=== PATIENT | male | born 1970 ===

== ENCOUNTER 2017-03-23 08:01 | Emergency (ER) | payer SELFPAY ==
[2017-03-23 08:05] VITALS: BMI 30.1
[2017-03-23] MEDS ORDERED: Sodium Chloride 0.9% 1,000 ML IV ONE (08:20)
[2017-03-23] MEDS ORDERED: Albuterol-Ipratrop 3 mg / 0.5 (3 ml) UD IH STA (08:22)
[2017-03-23] MEDS ORDERED: Albuterol-Ipratrop 3 mg / 0.5 (3 ml) UD ONE (08:40)
[2017-03-23] MEDS ORDERED: Sodium Chloride 0.9% 1,000 ML ONE (08:41)
[2017-03-23] MEDS ORDERED: MethylPREDNISolone 40 mg Vial ONE (08:44)
[2017-03-23 08:47] LABS: BASO # 0.1 K/uL (0.0-0.2); BASO % 0.7 % (0.0-2.0); EOS # 0.4 K/uL (0.0-0.7); EOS % 4.2 % (0.0-4.0); HEMATOCRIT 43.1 % (35.0-51.0); LYMPH # 1.8 K/uL (1.0-4.3); LYMPH % 20.2 % (20.0-40.0); MEAN CELL VOLUME 91.7 fL (80.0-94.0); MEAN CORPUSCULAR HEMOGLOBIN 31.5 pg (27.0-31.0); MEAN CORPUSCULAR HGB CONC 34.4 g/dL (33.0-37.0); MEAN PLATELET VOLUME 8.6 fL (7.2-11.7); MONO # 0.9 K/uL (0.0-0.8); RED CELL DISTRIBUTION WIDTH 13.5 % (11.5-14.5); WHITE BLOOD COUNT 9.1 K/uL (4.8-10.8)
[2017-03-23 08:55] LABS: BLOOD UREA NITROGEN 13 mg/dL (9-20); CALCIUM 8.7 mg/dl (8.6-10.4); CARBON DIOXIDE 28 mmol/L (22-30); CHLORIDE 103 mmol/L (98-107); GFR AFRICAN-AMERICAN > 60; GLUCOSE,RANDOM 93 mg/dL (75-110); POTASSIUM 4.3 mmol/L (3.6-5.2); SODIUM 137 mmol/L (132-148)
--- NOTE | 2017-03-23 09:04 | C.PDOC ---
History Of Present Illness 46 yo male w/PMHx of asthma come inf or evaluation of chest tightness gradually developed for past week. Pt admits, " travel a lot now, from different climates zone, weather changes might trigger it". Pt also complaining of lower back tightness. Otherwise, pt denies fever, chills, headache, dizziness, neck pain, CP, SOB, cough, palpitation, abd. pain, N/V/D, UTI sx, saddle anesthesia, incontinence, denies weakness, sensory or vascular deficits to B/L LEs. Ambulate to ED for evaluation, not in any apparent distress. Time Seen by Provider: 03/23/17 08:08 Chief Complaint (Nursing): Shortness Of Breath History Per: Patient Past Medical History Reviewed: Historical Data, Nursing Documentation, Vital Signs Vital Signs: Last Vital Signs Temp 98.2 F 03/23/17 10:08 Pulse 77 03/23/17 10:08 Resp 20 03/23/17 10:08 BP 126/72 03/23/17 10:08 Pulse Ox 99 03/23/17 10:19 - Medical History PMH: Asthma Surgical History: No Surg Hx Family History: States: No Known Family Hx - Social History Hx Tobacco Use: No Hx Alcohol Use: No Hx Substance Use: Yes (Marijuana) - Immunization History Hx Tetanus Toxoid Vaccination: No Hx Influenza Vaccination: No Review Of Systems Except As Marked, All Systems Reviewed And Found Negative. Constitutional: Negative for: Fever, Chills Eyes: Negative for: Vision Change ENT: Negative for: Ear Discharge, Nose Discharge, Nose Congestion, Throat Pain, Throat Swelling Cardiovascular: Negative for: Chest Pain, Palpitations, Paroxysmal Noc. Dyspnea , Edema, Light Headedness Respiratory: Negative for: Cough, Shortness of Breath, Pleuritic Pain, Sputum, Wheezing Gastrointestinal: Negative for: Nausea, Vomiting, Abdominal Pain Genitourinary: Negative for: Dysuria, Incontinence Musculoskeletal: Positive for: Back Pain. Negative for: Neck Pain Skin: Negative for: Rash Neurological: Negative for: Weakness, Numbness, Altered Mental Status, Dizziness Physical Exam - Physical Exam Appears: Well, Non-toxic, No Acute Distress Skin: Normal Color, Warm, Dry, No Rash Head: Normacephalic Eye(s): bilateral: PERRL Ear(s): Bilateral: Normal Nose: No Flaring, No Discharge Oral Mucosa: Moist, No Drooling Tongue: Normal Appearing Lips: Normal Appearing Throat: No Erythema, No Exudate Neck: Trachea Midline, Supple Cardiovascular: Rhythm Regular, No Murmur, No JVD Respiratory: No Decreased Breath Sounds, No Wheezing Gastrointestinal/Abdominal: Soft, No Tenderness, No Distention, No Guarding Back: No CVA Tenderness, No Vertebral Tenderness, Paraspinal Tenderness (lumbar) Extremity: Normal ROM, No Pedal Edema, No Deformity, No Swelling Neurological/Psych: Oriented x3, Normal Speech, Normal Motor, Normal Sensation, Normal Reflexes ED Course And Treatment - Laboratory Results Result Diagrams: 03/23/17 08:38 03/23/17 08:38 Lab Interpretation: Normal Interpretation Of ECG: Pt refused EKG O2 Sat by Pulse Oximetry: 99 Pulse Ox Interpretation: Normal - Other Rad CXR X-Ray: Read By Radiologist Interpretation: Creator : Hill Russell MD. Dictator : Hill Russell MD. Toll Gate Tender : Tin Whiz Machine Operator : Hill Russell MD. Approver2 : Report Date : 03/23/2017 09:03:37. My Comment : . HISTORY: Shortness of breath. COMPARISON: No prior. TECHNIQUE: Chest PA and lateral. FINDINGS: LUNGS: No active pulmonary disease. PLEURA: No significant pleural effusion identified. No pneumothorax apparent. CARDIOVASCULAR: Normal. OSSEOUS STRUCTURES: No significant abnormalities. VISUALIZED UPPER ABDOMEN: Normal. OTHER FINDINGS: None. IMPRESSION: No active disease. Progress Note: On re-evaluation, pt is afebrile, hemodynamicaly stable. Non- toxic. PUlsEOx 99% RA. PEAK flow- 420 post Tx. ENT: No acute findings. Neck : Supple, (-) JVD, (-) carotid bruits,. Lungs: CTA B/L, BS equal B/L. Abd: benign, (-) guarding, (-) rebound. Back: (-) CVA tenderness. Neuorlogicaly intact. Blood work review and appears normal. CXR- no acute abnormalities. Pt has clinical findings c/w asthma exacerbation, lower back strain. Pt advised. ref. to F/u with PMD in 2-3 days for re-eval. Return to ED if any worsening or new changes. Pt understand, stable for discharge now. Disposition Counseled Patient/Family Regarding: Studies Performed, Diagnosis, Need For Followup, Rx Given - Disposition Referrals: [facility] [Outside] Disposition: HOME/ ROUTINE Disposition Time: 10:07 Condition: STABLE Additional Instructions: Light duty to lower back Take medication as prescribed Inhaler twice daily for 3-4 days Follow up with PMD, Pulmonology in 2-3 days for re-evaluation. Return to ED if any worsening or new changes. Prescriptions: Ibuprofen [Motrin Tab] 600 mg PO Q6 #20 tab Methocarbamol [Robaxin] 500 mg PO TID #14 tab Prednisone [Deltasone] 40 mg PO DAILY #6 tablet Instructions: Asthma (ED), Back Pain (ED) Forms: [employer] (Azeri) - Clinical Impression Clinical Impression: Asthma, Lower back pain
--- NOTE | 2017-03-23 09:05 | RAD ---
HISTORY: Shortness of breath COMPARISON: No prior. TECHNIQUE: Chest PA and lateral FINDINGS: LUNGS: No active pulmonary disease. PLEURA: No significant pleural effusion identified. No pneumothorax apparent. CARDIOVASCULAR: Normal. OSSEOUS STRUCTURES: No significant abnormalities. VISUALIZED UPPER ABDOMEN: Normal. OTHER FINDINGS: None. IMPRESSION: No active disease.
[2017-03-23 09:10] LABS: RBC URINE 2 /hpf (0-3); URINE BILIRUBIN NEGATIVE (NEGATIVE); URINE BLOOD NEGATIVE (NEGATIVE); URINE COLOR Yellow (YELLOW); URINE GLUCOSE (UA) NORMAL (Normal); URINE KETONE NEGATIVE (NEGATIVE); URINE LEUKOCYTE ESTERASE NEG Leu/uL (Negative); URINE PROTEIN NEGATIVE (NEGATIVE); URINE UROBILINOGEN NORMAL mg/dL (0.2-1.0); WBC URINE 1 /hpf (0-5)
[2017-03-23 10:09] VITALS: BP 126/72; PULSE 77; RESP 20; TEMP 98.2
[2017-03-23 10:10] VITALS: O2SAT 99
== END 2017-03-23 10:28 | disposition home or self-care (01) ==
LOC: C.ER 08:01
DX: M54.5 Low back pain (principal); J45.909 Unspecified asthma, uncomplicated
CPT/HCPCS: 71020; 80048; 81001; 85025; 96361; 96374; 96375; 99285; J1885; J2405; J2930; J7040

== ENCOUNTER 2017-05-20 06:23 | Emergency (ER) | payer SELFPAY ==
[2017-05-20 06:24] VITALS: BMI 30.1
--- NOTE | 2017-05-20 07:23 | C.PDOC ---
History Of Present Illness Patient c/o right hand pain and swelling after he fell at work 10 pm last night. Patient denies any other injuries. Time Seen by Provider: 05/20/17 07:05 Chief Complaint (Nursing): Upper Extremity Problem/Injury History Per: Patient History/Exam Limitations: no limitations Onset/Duration Of Symptoms: Days (last night) Current Symptoms Are (Timing): Still Present Quality: "Pain" Pain Scale Rating Of: 7 Hands/Wrist (Pic): 1 - swelling, tenderness Past Medical History Reviewed: Historical Data, Nursing Documentation, Vital Signs Vital Signs: Last Vital Signs Temp 98 F 05/20/17 08:10 Pulse 82 05/20/17 08:10 Resp 16 05/20/17 08:10 BP 142/86 05/20/17 08:10 Pulse Ox 100 05/20/17 08:32 - Medical History PMH: Asthma Family History: States: Unknown Family Hx - Social History Hx Tobacco Use: No Hx Alcohol Use: Yes Hx Substance Use: Yes (Marijuana) - Immunization History Hx Tetanus Toxoid Vaccination: No Hx Influenza Vaccination: No Hx Pneumococcal Vaccination: No Review Of Systems Except As Marked, All Systems Reviewed And Found Negative. Musculoskeletal: Positive for: Hand Pain (right) Physical Exam - Physical Exam Appears: Well, Non-toxic, No Acute Distress Skin: Normal Color, No Rash Head: Atraumatic, Normacephalic Eye(s): bilateral: Normal Inspection Extremity: Tenderness (right hand, dosul over 3, 4, 5 metacarpal bones area), Swelling (dorsum of the right hand) Neurological/Psych: Oriented x3, Normal Speech, Normal Cognition ED Course And Treatment O2 Sat by Pulse Oximetry: 100 - Other Rad Right Hand xray X-Ray: Viewed By Me, Read By Radiologist Interpretation: Accession No. : [id number]. Patient Name / ID : RAY Sebastian / [id number]. Exam Date : 05/20/2017 07:23:44 ( Approved ). Study Comment : Sex / Age : M / 46Y. Creator : Yaniv Tapia MD. Dictator : Yaniv Tapia MD. Box Car Loader : Cosmetic Chemist : Yaniv Tapia MD. Approver2 : Report Date : 05/20/2017 08:36:27. My Comment : . PROCEDURE: Right Hand Radiographs. HISTORY: fall. COMPARISON: None. FINDINGS: BONES : Normal. No fracture. JOINTS: Normal. No osteoarthritic changes. SOFT TISSUES: Normal. OTHER FINDINGS: None. IMPRESSION: Normal right hand radiographs. Progress Note: Plan: Ibuprofen po, Ice pack, Right hand xray. Short arm splint was applied vy CP and checked by me. Patient was d/c home with Hand specialist f /u. Disposition - Disposition Referrals: Eliecer Ram MD [Staff Provider] - Disposition: HOME/ ROUTINE Disposition Time: 08:30 Condition: STABLE Additional Instructions: Follow up with PMD and hand specialist within 1-2 days. Return to ED if feel worse. Prescriptions: Ibuprofen [Motrin Tab] 600 mg PO Q8 #30 tab Instructions: Contusion in Adults (ED) Forms: [employer] (Croatian), Work Excuse - Clinical Impression Clinical Impression: Hand contusion
[2017-05-20 08:11] VITALS: BP 142/86; PULSE 82; RESP 16; TEMP 98
[2017-05-20 08:33] VITALS: O2SAT 100
--- NOTE | 2017-05-20 08:38 | RAD ---
PROCEDURE: Right Hand Radiographs. HISTORY: fall COMPARISON: None. FINDINGS: BONES: Normal. No fracture. JOINTS: Normal. No osteoarthritic changes. SOFT TISSUES: Normal. OTHER FINDINGS: None. IMPRESSION: Normal right hand radiographs.
== END 2017-05-20 08:43 | disposition home or self-care (01) ==
LOC: C.ER 06:23
DX: S60.221A Contusion of right hand, initial encounter (principal); W18.30XA Fall on same level, unspecified, initial encounter; Y92.89 Other specified places as the place of occurrence of the external cause; Y99.0 Civilian activity done for income or pay

== ENCOUNTER 2017-05-31 06:02 | Emergency (ER) | payer SELFPAY ==
[2017-05-31 06:02] VITALS: BMI 30.1
[2017-05-31 06:14] VITALS: BP 152/77; PULSE 77; TEMP 98.3; O2SAT 99
--- NOTE | 2017-05-31 06:24 | C.PDOC ---
History Of Present Illness 47 year old male presents to the ER with a complaint of progressively worsening cough and difficulty breathing that began 2 days ago. Patient reports he ran out of his albuterol. Denies chest pain, nausea, or vomiting. Time Seen by Provider: 05/31/17 06:22 Chief Complaint (Nursing): Respiratory Distress History Per: Patient History/Exam Limitations: no limitations Onset/Duration Of Symptoms: Days Current Symptoms Are (Timing): Still Present Associated Symptoms: Dyspnea, Cough. denies: Chest Pain Preciptating Factors: Ran Out Of Meds Recent travel outside of the [place]: No Past Medical History Reviewed: Historical Data, Nursing Documentation, Vital Signs Vital Signs: Last Vital Signs Temp 98.3 F 05/31/17 06:11 Pulse 77 05/31/17 06:11 Resp 18 05/31/17 06:36 BP 152/77 H 05/31/17 06:11 Pulse Ox 99 05/31/17 06:37 - Medical History PMH: Asthma Family History: States: Unknown Family Hx - Social History Hx Tobacco Use: No Hx Alcohol Use: No Hx Substance Use: Yes (Marijuana) - Immunization History Hx Tetanus Toxoid Vaccination: No Hx Influenza Vaccination: No Hx Pneumococcal Vaccination: No Review Of Systems Constitutional: Negative for: Fever, Chills Cardiovascular: Negative for: Chest Pain, Palpitations Respiratory: Positive for: Cough, Shortness of Breath Gastrointestinal: Negative for: Nausea, Vomiting Physical Exam - Physical Exam Appears: Non-toxic Skin: Normal Color, Warm, Dry Head: Atraumatic, Normacephalic Eye(s): bilateral: Normal Inspection Oral Mucosa: Moist Throat: Normal, No Erythema, No Other (Swelling) Chest: Symmetrical, No Tenderness Cardiovascular: Rhythm Regular Respiratory: No Rales, No Rhonchi, Wheezing (Mild expiratory) Gastrointestinal/Abdominal: Soft, No Tenderness Neurological/Psych: Oriented x3, Normal Speech, Other (No focal deficits) ED Course And Treatment O2 Sat by Pulse Oximetry: 99 (Room air) Pulse Ox Interpretation: Normal Medical Decision Making Medical Decision Making: Impression: 47 year old male with asthma. Plan: * Albuterol nebulizer Re-Eval: Patient seated comfortably in no respiratory distress. Lungs clear bilaterally. Patient feels better and asking for Rx and discharge Disposition Counseled Patient/Family Regarding: Diagnosis, Need For Followup, Rx Given - Disposition Referrals: [facility] [Outside] [facility] [Outside] [facility] Disposition: HOME/ ROUTINE Disposition Time: 06:40 Condition: IMPROVED Additional Instructions: Use inhaler or nebulizer as needed every 4 hours Follow up with your primary medical doctor or clinic in 2-5 days for further evaluation. Return to the emergency department at any time if symptoms persist or worsen. Prescriptions: Albuterol HFA [Ventolin HFA 90 mcg/actuation (8 g)] 1 puff IH Q4 #1 puff Instructions: Asthma (DC) Forms: [employer] (Hungarian) - POA Present On Arrival: None - Clinical Impression Clinical Impression: Asthma, Medicine refill - PA / POISER BALANCE / Resident Statement MD/DO has reviewed & agrees with the documentation as recorded. - Scribe Statement The provider has reviewed the documentation as recorded by the Scribe Travis Serrano All medical record entries made by the Scribe were at my direction and personally dictated by me. I have reviewed the chart and agree that the record accurately reflects my personal performance of the history, physical exam, medical decision making, and the department course for this patient. I have also personally directed, reviewed, and agree with the discharge instructions and disposition.
[2017-05-31] MEDS ORDERED: Albuterol-Ipratrop 3 mg / 0.5 (3 ml) UD INH STA (06:25)
[2017-05-31 06:39] VITALS: RESP 18
== END 2017-05-31 06:42 | disposition home or self-care (01) ==
LOC: C.ER 06:02
DX: J45.909 Unspecified asthma, uncomplicated (principal); Z76.0 Encounter for issue of repeat prescription

== ENCOUNTER 2017-06-13 06:14 | Emergency (ER) | payer SELFPAY ==
[2017-06-13 06:14] VITALS: BMI 30.1
[2017-06-13 06:28] VITALS: BP 137/80; PULSE 79; RESP 20; TEMP 98.1; O2SAT 99
[2017-06-13 06:40] LABS: BASO # 0.1 K/uL (0.0-0.2); BASO % 0.7 % (0.0-2.0); EOS # 0.3 K/uL (0.0-0.7); EOS % 3.3 % (0.0-4.0); HEMOGLOBIN 15.3 g/dL (12.0-18.0); LYMPH % 20.9 % (20.0-40.0); MEAN CELL VOLUME 92.1 fL (80.0-94.0); MEAN CORPUSCULAR HGB CONC 34.8 g/dL (33.0-37.0); MEAN PLATELET VOLUME 8.6 fL (7.2-11.7); MONO # 0.8 K/uL (0.0-0.8); MONO % 7.8 % (0.0-10.0); NEUT # 6.6 K/uL (1.8-7.0); NEUT % 67.3 % (50.0-75.0); RBC 4.78 Mil/uL (4.40-5.90); RED CELL DISTRIBUTION WIDTH 13.4 % (11.5-14.5); WHITE BLOOD COUNT 9.8 K/uL (4.8-10.8)
[2017-06-13 06:50] LABS: INR 1.1; PROTHROMBIN TIME 12.2 SECONDS (9.7-12.2)
[2017-06-13 06:53] LABS: ALB/GLOB RATIO 1.1 (1.0-2.1); ALBUMIN 3.6 g/dL (3.5-5.0); ALT/SGPT 28 U/L (21-72); AST/SGOT 23 U/L (17-59); BLOOD UREA NITROGEN 8 mg/dL (9-20); CALCIUM 8.9 mg/dl (8.6-10.4); GFR AFRICAN-AMERICAN > 60; GFR NON-AFRICAN AMERICAN > 60
--- NOTE | 2017-06-13 08:14 | C.PDOC ---
History Of Present Illness 47 y/o male with PMhx of Asthma presents to ED with complaints of left sided chest pain yesterday and today both episodes lasting about 1 min. Patient denies sob, cough, recent travel, sick contacts, diaphoresis, change with exertion or any other complaints at this time. Chief Complaint (Nursing): Chest Pain History Per: Patient History/Exam Limitations: no limitations Onset/Duration Of Symptoms: Days Current Symptoms Are (Timing): Still Present Past Medical History Reviewed: Historical Data, Nursing Documentation, Vital Signs Vital Signs: Last Vital Signs Temp 98.1 F 06/13/17 06:22 Pulse 79 06/13/17 06:22 Resp 20 06/13/17 06:22 BP 137/80 06/13/17 06:22 Pulse Ox 99 06/13/17 08:17 - Medical History PMH: Asthma Surgical History: No Surg Hx Family History: States: No Known Family Hx - Social History Hx Tobacco Use: No Hx Alcohol Use: No Hx Substance Use: Yes (Marijuana) - Immunization History Hx Tetanus Toxoid Vaccination: No Hx Influenza Vaccination: No Hx Pneumococcal Vaccination: No Review Of Systems Constitutional: Negative for: Fever, Chills Cardiovascular: Positive for: Chest Pain Respiratory: Negative for: Cough, Shortness of Breath Gastrointestinal: Negative for: Nausea, Vomiting Skin: Negative for: Rash Physical Exam - Physical Exam Appears: Non-toxic, No Acute Distress Skin: Warm, Dry Head: Normacephalic, Other (vertical well healed scar to left side of forehead) Eye(s): bilateral: Normal Inspection Oral Mucosa: Moist Neck: Supple Chest: Symmetrical Cardiovascular: Rhythm Regular Respiratory: Normal Breath Sounds, No Rales, No Rhonchi, No Wheezing Gastrointestinal/Abdominal: Soft, No Tenderness, No Guarding, No Rebound Extremity: No Pedal Edema, Capillary Refill (<2 seconds) Neurological/Psych: Oriented x3 ED Course And Treatment - Laboratory Results Result Diagrams: 06/13/17 06:37 06/13/17 06:37 ECG: Interpreted By Me, Viewed By Me ECG Rhythm: Sinus Rhythm Rate From EC (bpm) O2 Sat by Pulse Oximetry: 99 (RA) Pulse Ox Interpretation: Normal Disposition - Disposition Referrals: [facility] Alsion Kwok, [Non-Staff] - Disposition: HOME/ ROUTINE Disposition Time: 07:20 Condition: GOOD Additional Instructions: Thank you for letting us take care of you today. The emergency medical care you received today was directed at your acute symptoms. If you were prescribed any medication, please fill it and take as directed. It may take several days for your symptoms to resolve. Return to the Emergency Department if your symptoms worsen, do not improve, or if you have any other problems. Please contact your doctor or call one of the physicians/clinics you have been referred to that are listed on the Patient Visit Information form that is included in your discharge packet. Bring any paperwork you were given at discharge with you along with any medications you are taking to your follow up visit. Our treatment cannot replace ongoing medical care by a primary care provider (PCP) outside of the emergency department. Thank you for allowing the [facility] team to be part of your care today. Please follow up with your doctor in 2-3 days for re-evaluation and further management. Instructions: Noncardiac Chest Pain (ED) Forms: [employer] (Palauan) - Clinical Impression Clinical Impression: Non-cardiac chest pain - Scribe Statement The provider has reviewed the documentation as recorded by the Muniraibjohnny Cole All medical record entries made by the Muniraibjohnny were at my direction and personally dictated by me. I have reviewed the chart and agree that the record accurately reflects my personal performance of the history, physical exam, medical decision making, and the department course for this patient. I have also personally directed, reviewed, and agree with the discharge instructions and disposition.
--- NOTE | 2017-06-13 09:30 | RAD ---
Chest x-ray single frontal view History: Chest pain. Comparison: 03/23/2017 Findings: No focal infiltrate or effusion. Heart size within normal limits. Impression: No focal infiltrate or effusion.
--- NOTE | 2017-06-15 15:22 | CARD ---
APPROVED REPORT EKG Measurement Heart [id number] <Conclusion> Normal sinus rhythm Possible Left atrial enlargement Borderline ECG
== END 2017-06-13 08:34 | disposition home or self-care (01) ==
LOC: C.ER 06:14
DX: R07.89 Other chest pain (principal)